=== PATIENT | male | born 1980 | race Caucasian/White ===

== ENCOUNTER 2019-07-19 15:18 | Emergency (ER) | payer SELFPAY ==
[~2019-07-19] VITALS: Ht 162.6 cm; Wt 49.9 kg
--- NOTE | 2019-07-19 15:20 | NUR ---
BIBRA39, FOUND PASSED OUT IN A SIDEWALK. UNRESPONSIVE. NARCAN 2MG GIVEN, TO ER BED 8, HOOKED TO MONITOR, CHANGED TO GOWN, PROVIDE W WARM BLANKET, AWAITING MD ZIEGLER.
--- NOTE | 2019-07-19 15:32 | NUR ---
DR MADDOX AT BEDSIDE
[2019-07-19] MEDS: IV NS 0.9% 1,000 ML BAG IV ONE (16:00)
[2019-07-19 16:02] LABS: BASOPHILS # (AUTO) 0.1 /CMM (0.0-0.2); EOSINOPHILS % (AUTO) 0.3 % (0.0-6.0); HEMATOCRIT 50 % (39-51); LYMPHOCYTES % (AUTO) 20.1 % (20.0-44.0); MEAN CORPUSCULAR HGB CONC 34 g/dl (31.0-36.0); MEAN CORPUSCULAR VOLUME 108 fL (80-96); MONOCYTES # (AUTO) 1.2 /CMM (0.1-1.30); MONOCYTES % (AUTO) 12.2 % (2.0-12.0); NEUTROPHILS # (AUTO) 6.7 /CMM (1.8-8.9); NEUTROPHILS % (AUTO) 66.4 % (43.0-81.0); PLATELET COUNT (AUTO) 225 /CMM (150-450); RED BLOOD CELL COUNT(AUTO) 4.57 MIL/uL (4.5-6.0); WHITE BLOOD COUNT (AUTO) 10.2 K/uL (4.3-11.0)
[2019-07-19 16:04] LABS: APPEARANCE,URINE Clear (CLEAR); BILIRUBIN,URINE Negative (NEGATIVE); BLOOD, URINE Negative Ery/uL (NEGATIVE); COLOR,URINE Yellow (YELLOW); KETONES,URINE Negative (NEGATIVE); LEUKOCYTE ESTERASE ,URINE Negative (NEGATIVE); NITRITE, URINE Negative (NEGATIVE); PH,URINE 5.5 (5.0-8.0); PROTEIN,URINE Negative (NEGATIVE); UGLUCOSE Negative (NEGATIVE); UROBILINOGEN,URINE 0.2 EU/dL (0.2)
[2019-07-19 16:07] LABS: CALCIUM, SERUM 8.8 mg/dL (8.5-10.1); CARBON DIOXIDE 26 mmol/L (21-32); CHLORIDE 104 mmol/L (98-107); CREATININE 0.7 mg/dL (0.6-1.3); GLUCOSE 94 mg/dL (74-106); POTASSIUM 3.1 mmol/L (3.5-5.1); SODIUM SERUM 146 mmol/L (136-145); UREA NITROGEN, BLOOD 4 mg/dL (7-18)
[2019-07-19 16:12] LABS: ALANINE AMINOTRANSFERASE 91 U/L (12-78); ALBUMIN 4.2 g/dL (3.4-5.0); ALCOHOL, BLOOD 498 mg/dL (0-0); ALKALINE PHOSPHATASE 91 U/L (46-116); ASPARTATE AMINOTRANSFERASE 71 U/L (15-37); BILIRUBIN,DIRECT 0.2 mg/dL (0.0-0.2); BILIRUBIN,TOTAL 0.4 mg/dL (0.2-1.0); SALICYLATE 3.5 mg/dL (2.8-20.0); TOTAL PROTEIN, SERUM 7.4 g/dL (6.4-8.2)
[2019-07-19 16:15] LABS: ACETAMINOPHEN < 5 ug/ml (10-30)
--- NOTE | 2019-07-19 19:03 | NUR ---
PT SLEEPING IN RHURON. NO SIGNS OF DISTRESS NOTED. PT VITAL SIGNS STABLE. WILL CONT TO MONITOR PT.
[2019-07-19 19:05] VITALS: BP 152/93
--- NOTE | 2019-07-20 03:15 | NUR ---
PT A/OX3, NO IMMEDIATE SIGNS OF DISTRESS NOTED. PT PROVIDED WITH WATER. PT VITAL SIGNS STABLE. WILL CONT TO MONITOR PT.
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
== END 2019-07-20 03:38 | disposition left against medical advice (07) ==
LOC: EDBD 15:22 → ER 15:22
DX: F10.129 Alcohol abuse with intoxication, unspecified (principal); R41.82 Altered mental status, unspecified; R94.31 Abnormal electrocardiogram [ECG] [EKG]; Y90.8 Blood alcohol level of 240 mg/100 ml or more
CPT/HCPCS: 36415; 80048; 80076; 80305; 80307; 80329; 81001; 85025; 93005; 96360; 99284; G0480; J7030; 81000-TC

== ENCOUNTER 2019-07-20 18:01 | Inpatient (IN) | payer SELFPAY ==
[~2019-07-20] VITALS: Ht 167.6 cm; Wt 50.8 kg
--- NOTE | 2019-07-20 18:45 | NUR ---
PATIENT BIB CAREGIVER TO ER W/ AUDITORY AND VISUAL HALLUCINATIONS. AAOX3. PT CLAIMS THAT HE DOES NOT KNOW HOW HE GOT HERE. PT CLAIMS THAT HE CURRENTLY DOES NOT HAVE AUDITORY OR VISUAL HALLUCINATIONS. DOES NOT ENDORSE SI/ANGELO. NO ACUTE DISTRESS NOTED. VSS. KEPT COMFORTABLE W/ BLANKET IN BED. WILL CONTINUE TO MONITOR FOR PATIENT'S SAFETY.
[2019-07-20] MEDS ORDERED: IBUPROFEN 600 MG TABLET PO ONE ×2 (18:56→19:00)
[2019-07-20] MEDS ORDERED: LORAZEPAM INJ 2 MG/ML VIAL ONE (18:57)
[2019-07-20] MEDS ORDERED: IV NS 0.9% 1,000 ML BAG IV ONE (19:00)
[2019-07-20] MEDS ORDERED: VANCOMYCIN 1 GM in IV D5W 250 ML IV ONE (19:00)
[2019-07-20] MEDS ORDERED: PIPERACILLIN /TAZOBACTAM 3.375 G in IV D5W 50 ML IV ONE (19:00)
[2019-07-20] MEDS ORDERED: LORAZEPAM INJ 2 MG/ML VIAL IV ONE (19:00)
[2019-07-20 19:08] LABS: BASOPHILS % (AUTO) 0.3 % (0.0-2.0); EOSINOPHILS % (AUTO) 0.1 % (0.0-6.0); HEMATOCRIT 44 % (39-51); HEMOGLOBIN 14.9 g/dL (13.5-17.5); LYMPHOCYTES # (AUTO) 1.4 /CMM (0.8-4.8); LYMPHOCYTES % (AUTO) 10.8 % (20.0-44.0); MEAN CORPUSCULAR HGB CONC 34 g/dl (31.0-36.0); MEAN CORPUSCULAR VOLUME 108 fL (80-96); MONOCYTES # (AUTO) 1.5 /CMM (0.1-1.30); MONOCYTES % (AUTO) 11.4 % (2.0-12.0); NEUTROPHILS # (AUTO) 10.2 /CMM (1.8-8.9); NEUTROPHILS % (AUTO) 77.4 % (43.0-81.0); PLATELET COUNT (AUTO) 206 /CMM (150-450); RED BLOOD CELL COUNT(AUTO) 4.03 MIL/uL (4.5-6.0); WHITE BLOOD COUNT (AUTO) 13.2 K/uL (4.3-11.0)
--- NOTE | 2019-07-20 19:12 | NUR ---
CALLED NURSING SUP FOR BED WITH SITTER
[2019-07-20 19:13] LABS: CALCIUM, SERUM 9.1 mg/dL (8.5-10.1); CREATININE 0.6 mg/dL (0.6-1.3); POTASSIUM 4.5 mmol/L (3.5-5.1)
[2019-07-20 19:20] LABS: SERUM AMMONIA 16 umol/L (11-32)
[2019-07-20 19:28] LABS: ALCOHOL, BLOOD < 3 mg/dL (0-0)
[2019-07-20 19:29] LABS: ALBUMIN 4.3 g/dL (3.4-5.0); BILIRUBIN,DIRECT 0.4 mg/dL (0.0-0.2); BILIRUBIN,TOTAL 1.2 mg/dL (0.2-1.0); TOTAL PROTEIN, SERUM 7.3 g/dL (6.4-8.2)
[2019-07-20 19:42] LABS: BAND % (MANUAL) 4 % (0.0-5.0); LYMPHOCYTES % (MANUAL) 18 % (16-48); MONOCYTES % (MANUAL) 11 % (0-11.0); NEUTROPHILS % (MANUAL) 67 (42-76)
--- NOTE | 2019-07-20 19:44 | NUR ---
REPORT GIVEN TO CIRILO PETERS FOR ALESSIO
--- NOTE | 2019-07-20 19:54 | NUR ---
EPIC MILIEU TECHNICIAN PAGED
--- NOTE | 2019-07-20 19:54 | NUR ---
RECIEVED BED 313-2
--- NOTE | 2019-07-20 21:17 | NUR ---
report given to grace beal for brenden; pt will be transported to 3rd floor via [facility]
[2019-07-20 21:30] VITALS: BP 141/83
[2019-07-20] MEDS ORDERED: MAG HYDROX/AL HYDROX/SIMETH 30 ML UDC PO PRN (22:30)
[2019-07-20] MEDS ORDERED: ONDANSETRON HCL/PF 4 MG/2 ML VIAL IVP PRN (22:30)
[2019-07-20] MEDS ORDERED: HYDROCODONE/APAP 10/325MG 1 EA TABLET PO PRN (22:30)
[2019-07-20] MEDS ORDERED: LORAZEPAM INJ 2 MG/ML VIAL IV PRN (22:30)
[2019-07-20] MEDS ORDERED: ACETAMINOPHEN 325 MG TABLET PO PRN (22:30)
[2019-07-20] MEDS ORDERED: MORPHINE SULFATE INJ 2 MG/ML DISP.SYRIN IV PRN (22:30)
[2019-07-20] MEDS ORDERED: MAGNESIUM HYDROXIDE 30 ML UDC PO PRN (22:30)
[2019-07-20] MEDS ORDERED: HYDROCODONE/APAP 5/325MG 1 EACH TABLET PO PRN (22:30)
--- NOTE | 2019-07-20 23:00 | NUR ---
Receive pt via gurgeorgette from E.R services at 2110 pt a/o x 3 pt noted sleepy but easily arousable. admit to medsurg unit. respirations even and unlabored. head to toe assessment is done. denies hallucination and suicidal ideation at this time. pt verbalizes "i just wanna sleep and rest". kept clean and dry and comfortable. safety measures at all times. will cont to mtr
[2019-07-20] MEDS: IV D5/0.45 NACL 1,000 ML IV PRN (23:21)
[2019-07-21] MEDS: FOLIC ACID 1 MG TABLET PO SCH ×2 (01:56→09:32)
[2019-07-21] MEDS: THIAMINE HCL 100 MG TABLET PO SCH ×2 (01:56→09:31)
[2019-07-21] MEDS ORDERED: PIPERACILLIN /TAZOBACTAM 4.5 G in IV D5W 50 ML IV SCH (05:00)
[2019-07-21] MEDS ORDERED: PIPERACILLIN /TAZOBACTAM 2.25 G VIAL IV ONE (05:28)
--- NOTE | 2019-07-21 06:20 | NUR ---
MS RN ASLEEP AND EASILY AWAKEN, DENIES HI/SI AT THIS TIME. PT STATED FEELS BETTER. SLEPT WELL THROUGHOUT THE NIGHT. NO S/S OF DISTRESS, NO C/O OF PAIN AT THIS TIME. NO S/S OF WITHDRAWAL. 1:1 SITTER AT BEDSIDE, NURSING CARE RENDERED, KEPT CLEAN AND DRY AND COMFORTABLE. NEEDS ATTENDED AND ANTICIPATED. SAFETY MEASURES AT ALL TIMES. ENDORSE TO THE NEXT SHIFT.
[2019-07-21 06:50] LABS: BASOPHILS # (AUTO) 0.1 /CMM (0.0-0.2); BASOPHILS % (AUTO) 0.6 % (0.0-2.0); EOSINOPHILS % (AUTO) 1.2 % (0.0-6.0); HEMATOCRIT 41 % (39-51); HEMOGLOBIN 14.1 g/dL (13.5-17.5); LYMPHOCYTES # (AUTO) 1.3 /CMM (0.8-4.8); LYMPHOCYTES % (AUTO) 15.4 % (20.0-44.0); MEAN CORPUSCULAR HGB CONC 34 g/dl (31.0-36.0); MEAN CORPUSCULAR VOLUME 108 fL (80-96); MONOCYTES # (AUTO) 1.2 /CMM (0.1-1.30); MONOCYTES % (AUTO) 13.4 % (2.0-12.0); NEUTROPHILS # (AUTO) 6.1 /CMM (1.8-8.9); NEUTROPHILS % (AUTO) 69.4 % (43.0-81.0); PLATELET COUNT (AUTO) 171 /CMM (150-450); RED BLOOD CELL COUNT(AUTO) 3.83 MIL/uL (4.5-6.0); WHITE BLOOD COUNT (AUTO) 8.7 K/uL (4.3-11.0)
[2019-07-21 07:09] LABS: CALCIUM, SERUM 8.1 mg/dL (8.5-10.1); CREATININE 0.6 mg/dL (0.6-1.3); MAGNESIUM 1.8 mg/dL (1.8-2.4); PHOSPHORUS 2.8 mg/dL (2.5-4.9); POTASSIUM 3.7 mmol/L (3.5-5.1)
[2019-07-21 07:18] LABS: THYROID STIMULATING HORMONE 1.327 uIU/mL (0.358-3.74)
--- NOTE | 2019-07-21 08:00 | NUR ---
MS RN NOTES PATIENT IN BED RESTING NO SOB OR ACUTE DISTRESS NOTED. PATIENT ALERT, ORIENTED X4. PERIPHERAL IV INTACT PATENT. BED IN LOW LOCKED POSITION. CALL LIGHT WITHIN REACH. WILL CONTINUE TO MONITOR.
[2019-07-21 08:52] LABS: LYMPHOCYTES % (MANUAL) 16 % (16-48); MONOCYTES % (MANUAL) 11 % (0-11.0); NEUTROPHILS % (MANUAL) 73 (42-76)
[2019-07-21] MEDS ORDERED: VANCOMYCIN 1 GM in IV D5W 250 ML IV SCH (09:00)
[2019-07-21] MEDS: IV D5/0.45 NACL 1,000 ML IV PRN ×2 (10:11→21:38)
[2019-07-21] MEDS ORDERED: PIPERACILLIN /TAZOBACTAM 3.375 G in IV D5W 50 ML IV SCH (12:00)
[2019-07-21] MEDS ORDERED: PIPERACILLIN /TAZOBACTAM 3.375 G in IV NS 0.9% 50 ML IV SCH (12:00)
[2019-07-21] MEDS ORDERED: CEFTRIAXONE 1 G in IV D5W 50 ML IV SCH (13:00)
--- NOTE | 2019-07-21 13:37 | NUR ---
Social service consult requested by Dr. Aguilar for alcohol abuse. Pt. is a 39 year old male who was admitted to [facility] for cellulitis. Pt. was brougt to [facility] via ambulance the day before when he was found down on the street in front of a pet store. The pt. was reportedly unresponsive to Narcan en route but with positive gag reflex. He had reportedly been laying down in front of the pet store since 11am. Pt. eloped from the facility yesterday. Pt. came back to the hospital due to confusion and hearing voices. He stated he sustained scratches from a cat yesterday morning on his right wrist and forearm. He developed pain and swelling. SW met with pt. bedside. Pt. is alert and oriented x4. Pt. was sitting upright on his bed. Pt. is cooperative and pleasant with SW. 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 Pt. denies any drug use but does drink alcohol frequently. Pt. seems to minimize his alcohol consumption stating he drinks a few beers per day. Pt. states, he only drinks hard liquor on special occasions. Pt. uses marijuana daily. 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 Pt. is a cigarette smoker and smokes approximately 1/2 -1 pack per day. Pt. denies any psychiatric diagnosis or hospitalizations. Pt. denies suicidal/homicidal ideations and visual/auditory hallucinations at this time. Pt. discharge plan is to go back home which is located at [address] [place] [address]. [facility]. No other social service needs are requested at this time. SW is available, if needed.
[2019-07-21] MEDS ORDERED: AZITHROMYCIN 250 MG TABLET PO SCH (14:00)
--- NOTE | 2019-07-21 18:02 | NUR ---
MS RN NOTES PATIENT IN BED RESTING NO SOB OR ACUTE DISTRESS NOTED. PATIENT ALERT, ORIENTED X4. DENIES ANY PAIN. NO ACUTE CHANGES NOTED DURING SHIFT. PERIPHERAL IV INTACT PATENT. ALL DUE MEDICATIONS ADMINISTERED. ALL NEEDS MET. WILL ENDORSE CARE TO PM SHIFT.
--- NOTE | 2019-07-21 19:34 | NUR ---
MS RN RECEIVE PT IN BED A/O X 3 STABLE, RESPIRATION EVEN AND UNLABORED, NO S/S OF DISTRESS. SAFETY MEASURES IN PLACE. WILL CONT TO MTR.
[2019-07-21 20:00] VITALS: BP 122/75
[2019-07-22] MEDS: IV D5/0.45 NACL 1,000 ML IV PRN (06:18)
--- NOTE | 2019-07-22 06:38 | NUR ---
MS RN NO SIGNIFICANT CHANGES. SLEPT WELL THROUGHOUT THE NIGHT. STABLE AND CALM, AM CARE RENDERED, KEPT CLEAN AND DRY AND COMFORTABLE. NEEDS ATTENDED AND ANTICIPATED. NO C/O OF PAIN. SAFETY MEASURES AT ALL TIMES. ENDORSE TO THE NEXT SHIFT.
--- NOTE | 2019-07-22 07:30 | NUR ---
MS RN OPENING NOTES RECEIVED PT LAYING IN BED, A/O X3. RESPIRATIONS ARE EVEN AND UNLABORED, NOT IN ANY ACUTE DISTRESS NOTED. PT DENIES ANY PAIN AT THIS TIME, NO C/O SOB, N/V. IV SITE TO RAC INTACT, NO INFILTRATION NOTED. DRESSING KEPT CLEAN AND DRY. IV FLUIDS RUNNING AT 125ML/HR, TOLERATING WELL. SAFETY MEASURES ARE IN PLACE. INSTRUCTED PT TO USE CALL LIGHT WHEN ASSISTANCE IS NEEDED, CALL LIGHT IS LEFT WITHIN REACH. WILL MONITOR THROUGHOUT SHIFT FOR CONTINUITY OF CARE.
[2019-07-22 08:00] VITALS: BP 117/76
[2019-07-22] MEDS: THIAMINE HCL 100 MG TABLET PO SCH (08:11)
[2019-07-22] MEDS: FOLIC ACID 1 MG TABLET PO SCH (08:11)
[2019-07-22] MEDS ORDERED: AZITHROMYCIN 250 MG TABLET PO SCH (09:00)
--- NOTE | 2019-07-22 13:00 | NUR ---
MS HOUSEKEEPER HOME NOTE PT DISCHARGED TO HOME W/ FRIEND VIA PERSONAL VEHICLE. PT IS A/O X4, AFEBRILE. RESPIRATIONS ARE EVEN AND UNLABORED, NOT IN ANY ACUTE DISTRESS NOTED. PUPILS ARE REACTIVE TO LIGHT, BILATERAL HAND DIRECTOR OF LABOR RELATIONS ARE STRONG AND EQUAL. ABDOMEN IS SOFT AND NONDISTENDED, BOWEL SOUNDS ARE PRESENT IN ALL 4 QUADRANTS UPON AUSCULTATION. DENIES ANY BLADDER DISCOMFORT. IV ACCESS REMOVED. ID BANDS REMOVED. EXPLAINED DISCHARGE PAPERWORK TO PT AND FRIEND WITH VERBAL AND WRITTEN UNDERSTANDING. PROVIDED PT WITH OUTPATIENT SUBSTANCE ABUSE RESOURCES. PT LEFT WITH ALL BELONGINGS. ACCOMPANIED PT AND FRIEND TO VEHICLE. PT LEFT IN STABLE CONDITION.
== END 2019-07-22 12:35 | disposition home or self-care (01) | DRG 603 ==
LOC: ER 18:03 → TELE 19:57 → MED 07-21 01:51
PROVIDERS: ATTEND Nurse Practitioner Acute Care
DX: L03.113 Cellulitis of right upper limb (principal); F10.239 Alcohol dependence with withdrawal, unspecified; Y90.0 Blood alcohol level of less than 20 mg/100 ml; W55.03XA Scratched by cat, initial encounter; Z72.0 Tobacco use; Y92.9 Unspecified place or not applicable; F12.929 Cannabis use, unspecified with intoxication, unspecified
CPT/HCPCS: 36415; 70450-TC; 71045-TC; 73100-TC; 80048-TC; 80061-TC; 80076-TC; 80305; 82140-TC; 83690-TC; 83735-TC; 84100-TC; 84443-TC; 85025-TC; 85730-TC; 87040-TC; 87081-TC; A4216; G0378; G0480; J0696; J2060; J2543; J3370; J3490; J7030; J7060

== ENCOUNTER 2019-10-30 18:55 | Emergency (ER) | payer MEDICAID, OTHER ==
[~2019-10-30] VITALS: Ht 167.6 cm; Wt 57.6 kg
--- NOTE | 2019-10-30 19:21 | NUR ---
PT CHANTEL C/O R SHOULDER PAIN FOLLOWING FALL ON WEDNESDAY. PER PT HE "HAD A POSSIBLE DISLOCATED SHOULDER WHICH HE FIXED IT BY HIMSELF". PT ABLE TO PERFORM FULL ROM.
--- NOTE | 2019-10-30 20:45 | NUR ---
PT WAS PROVIDED W/ R SHOULDER SLING. Patient discharged to home in stable condition. Written and verbal after care instructions given. Patient verbalizes understanding of instruction.
[2019-10-30 21:21] VITALS: BP 143/87
== END 2019-10-30 20:45 | disposition home or self-care (01) ==
LOC: ER 19:02
DX: M25.511 Pain in right shoulder (principal); F10.10 Alcohol abuse, uncomplicated; F17.200 Nicotine dependence, unspecified, uncomplicated; Y90.9 Presence of alcohol in blood, level not specified
CPT/HCPCS: 73030-TC

== ENCOUNTER 2020-10-05 21:25 | Emergency (ER) | payer MEDICAID, OTHER ==
[~2020-10-05] VITALS: Ht 167.6 cm; Wt 56.7 kg
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
[2020-10-05] MEDS ORDERED: TDAP [DIPH/PERTUSSIS/TET] 0.5 ML VIAL IM ONE ×2 (22:00→22:33)
--- NOTE | 2020-10-05 22:10 | NUR ---
PT AMBULATION TESTED. ON STEADY GAIT.
--- NOTE | 2020-10-05 22:15 | NUR ---
CALLED CHARLETTE DELGADILLO, PT'S FAMILY THAT PT IS CLEARED FOR DISCHARGE AND NEEDS TO BE PICKED UP. UNABLE TO TECHNICAL SUPPORT ASSISTANT SO SHE WILL BE SENDING AN UBER OR CAB TO TECHNICAL SUPPORT ASSISTANT PT. PROVIDER IS AWARE AND OK TOO DISCHARGE IN THAT MANNER
--- NOTE | 2020-10-05 22:47 | NUR ---
Patient discharged to home in stable condition. Written and verbal after care instructions given. Patient verbalizes understanding of instruction. Pt ambulatory with a steady gait. Pt left on taxi cab sent by [facility].
[2020-10-05 23:15] VITALS: BP 134/83
== END 2020-10-05 23:00 | disposition home or self-care (01) ==
LOC: ER 21:29
DX: S00.83XA Contusion of other part of head, initial encounter (principal); S00.03XA Contusion of scalp, initial encounter; S20.412A Abrasion of left back wall of thorax, initial encounter; S20.411A Abrasion of right back wall of thorax, initial encounter; S80.812A Abrasion, left lower leg, initial encounter; S80.811A Abrasion, right lower leg, initial encounter; F10.129 Alcohol abuse with intoxication, unspecified; R51.9 Headache, unspecified; Y90.9 Presence of alcohol in blood, level not specified; Y08.02XA Assault by strike by baseball bat, initial encounter; Y93.89 Activity, other specified; Y92.89 Other specified places as the place of occurrence of the external cause; Y99.8 Other external cause status
CPT/HCPCS: 70450-TC; 90715

== ENCOUNTER 2021-05-16 13:20 | Inpatient (IN) | payer OTHER ==
[~2021-05-16] VITALS: Ht 167.6 cm; Wt 53.1 kg
[2021-05-16] MEDS ORDERED: IV NS 0.9% 1,000 ML BAG IV ONE (13:30)
--- NOTE | 2021-05-16 13:43 | NUR ---
[facility] FROM [facility]. TO ER BED 4. EYES CLOSE BUT EASILY AROUSABLE. NOT IN RESP DISTRESS. BROUGHT IN FOR WITNESSED SEIZURE. NO NOTED INJURY. PT STILL DISORIENTED. UNKNOWN HX OF SEIZURE. PT ON MONITOR. SEIZURE PRECAUTION IMPLEMENTED. MD WAS AT THE BEDSIDE. IV LINE AND BLOODR DROWN ON R AC 18G.
[2021-05-16 13:48] LABS: BASOPHILS # (AUTO) 0.1 K/uL (0.0-0.2); BASOPHILS % (AUTO) 1.1 % (0.0-2.0); EOSINOPHILS % (AUTO) 0.7 % (0.0-6.0); HEMATOCRIT 44 % (39-51); LYMPHOCYTES % (AUTO) 23.7 % (20.0-44.0); MEAN CORPUSCULAR HGB CONC 34 g/dl (31.0-36.0); MEAN CORPUSCULAR VOLUME 102 fL (80-96); MONOCYTES # (AUTO) 0.8 K/uL (0.1-1.30); MONOCYTES % (AUTO) 9.1 % (2.0-12.0); NEUTROPHILS # (AUTO) 5.5 K/uL (1.8-8.9); NEUTROPHILS % (AUTO) 65.4 % (43.0-81.0); PLATELET COUNT (AUTO) 184 K/uL (150-450); RED BLOOD CELL COUNT(AUTO) 4.34 MIL/uL (4.5-6.0); WHITE BLOOD COUNT (AUTO) 8.4 K/uL (4.3-11.0)
[2021-05-16] MEDS ORDERED: LORAZEPAM INJ 2 MG/ML VIAL ONE (13:50)
--- NOTE | 2021-05-16 13:50 | NUR ---
WALKED IN PT IS HAVING TONIC CLONIC SEIZURE LASTED 15SEC. ORAL TRAUMA NOTED. ATIVAN 2 MG IVP X 1 PER MD ORDERED.
[2021-05-16 14:00] LABS: CALCIUM, SERUM 9.4 mg/dL (8.5-10.1); CARBON DIOXIDE 26 mmol/L (21-32); CHLORIDE 102 mmol/L (98-107); GLUCOSE 73 mg/dL (74-106); POTASSIUM 4.4 mmol/L (3.5-5.1); SODIUM SERUM 141 mmol/L (136-145); UREA NITROGEN, BLOOD 11 mg/dL (7-18)
[2021-05-16] MEDS ORDERED: LEVETIRACETAM (500MG) 1,000 MG in IV NS 0.9% 100 ML IV SCH (14:00)
[2021-05-16] MEDS ORDERED: LORAZEPAM INJ 2 MG/ML VIAL IV ONE (14:00)
[2021-05-16 14:06] LABS: ALANINE AMINOTRANSFERASE 29 U/L (12-78); ALBUMIN 4.1 g/dL (3.4-5.0); ALCOHOL, BLOOD < 3 mg/dL (0-0); ALKALINE PHOSPHATASE 104 U/L (46-116); ASPARTATE AMINOTRANSFERASE 25 U/L (15-37); BILIRUBIN,DIRECT 0.1 mg/dL (0.0-0.2); BILIRUBIN,TOTAL 0.4 mg/dL (0.2-1.0); TOTAL PROTEIN, SERUM 7.6 g/dL (6.4-8.2)
--- NOTE | 2021-05-16 15:00 | NUR ---
CALLED NURSING SUP FOR TELE BED.
--- NOTE | 2021-05-16 16:27 | NUR ---
PAGED DR. WOLFE.
--- NOTE | 2021-05-16 18:11 | NUR ---
NURSING SUP GAVE [phone].
--- NOTE | 2021-05-16 18:18 | NUR ---
REPORT GIVEN TO NURSE MORGAN FOR ALESSIO
[2021-05-16] MEDS ORDERED: LORAZEPAM INJ 2 MG/ML VIAL IV PRN (18:30)
[2021-05-16] MEDS ORDERED: ACETAMINOPHEN 325 MG TABLET PO PRN (18:30)
[2021-05-16] MEDS ORDERED: MAGNESIUM HYDROXIDE 30 ML UDC PO PRN (18:30)
[2021-05-16] MEDS ORDERED: Z GUARD REMEDY 2 OZ OINT TP PRN (18:30)
[2021-05-16] MEDS ORDERED: MAG HYDROX/AL HYDROX/SIMETH 30 ML UDC PO PRN (18:30)
[2021-05-16] MEDS ORDERED: ONDANSETRON HCL/PF 4 MG/2 ML VIAL IVP PRN (18:30)
[2021-05-16] MEDS ORDERED: ZOLPIDEM TARTRATE 5 MG TABLET PO PRN (18:30)
[2021-05-16 18:35] VITALS: BP 118/82
--- NOTE | 2021-05-16 18:36 | NUR ---
PT TRANSPORTED TO UNIT IN [facility] WITH EMT ADN RN AR BEDSIDE W/ ACLS PROTOCOL. NAD NOTED DURING TRANSPORT.
[2021-05-16 20:00] VITALS: BP 118/80
[2021-05-16] MEDS ORDERED: LEVETIRACETAM (500MG) 500 MG in IV NS 0.9% 100 ML IV SCH (20:00)
--- NOTE | 2021-05-16 20:00 | NUR ---
SUPERVISOR PUBLICATIONS PRODUCTIONSTEAM FITTER SUPERVISOR NOTE PATIENT ALERT/ORIENTED X 3, PT ABLE TO MAKE NEEDS KNOWN. PATIENT STABLE ON OXYGEN VIA NASAL CANNULA. RIGHT AC #18G INTACT AND FLUSHING WELL. PATIENT BELONGINGS CHARTED AND ACCOUNTED FOR. ORIENTED PATIENT TO ROOM AND HOW TO USE CALL LIGHT. SAFETY AND SEIZURE PRECAUTIONS IN PLACE, BED LOCKED IN LOWEST POSITION, BED ALARM ON, CALL LIGHT WITHIN REACH, WILL CONTINUE TO MONITOR
[2021-05-16] MEDS: IV D5/0.45 NACL 1,000 ML IV PRN (20:09)
[2021-05-17] VITALS: BP 119/81
[2021-05-17] MEDS ORDERED: LEVETIRACETAM (500MG) 500 MG in IV NS 0.9% 100 ML IV SCH (02:00)
[2021-05-17 04:00] VITALS: BP 109/73
[2021-05-17 06:17] LABS: BASOPHILS # (AUTO) 0.1 K/uL (0.0-0.2); BASOPHILS % (AUTO) 0.6 % (0.0-2.0); EOSINOPHILS % (AUTO) 1.7 % (0.0-6.0); HEMATOCRIT 42 % (39-51); HEMOGLOBIN 14.3 g/dL (13.5-17.5); LYMPHOCYTES # (AUTO) 1.8 K/uL (0.8-4.8); LYMPHOCYTES % (AUTO) 20.1 % (20.0-44.0); MEAN CORPUSCULAR HGB CONC 34 g/dl (31.0-36.0); MEAN CORPUSCULAR VOLUME 102 fL (80-96); MONOCYTES # (AUTO) 0.8 K/uL (0.1-1.30); MONOCYTES % (AUTO) 9.1 % (2.0-12.0); NEUTROPHILS # (AUTO) 6.3 K/uL (1.8-8.9); NEUTROPHILS % (AUTO) 68.5 % (43.0-81.0); PLATELET COUNT (AUTO) 156 K/uL (150-450); RED BLOOD CELL COUNT(AUTO) 4.13 MIL/uL (4.5-6.0); WHITE BLOOD COUNT (AUTO) 9.1 K/uL (4.3-11.0)
[2021-05-17 06:40] LABS: CALCIUM, SERUM 8.2 mg/dL (8.5-10.1); CREATININE 0.8 mg/dL (0.6-1.3); MAGNESIUM 2.1 mg/dL (1.8-2.4); PHOSPHORUS 3.2 mg/dL (2.5-4.9); POTASSIUM 3.6 mmol/L (3.5-5.1)
[2021-05-17 06:51] LABS: THYROID STIMULATING HORMONE 2.001 uIU/mL (0.358-3.74)
--- NOTE | 2021-05-17 07:15 | NUR ---
ANESTHESIOLOGISTSWAHILI TEACHER NOTE PATIENT SLEEPING, BREATHING EVEN AND UNLABORED, NO DISTRESS OR SOB NOTED. RIGHT AC #18G INTACT AND RUNNING D5 1/2 NS @ 125 ML/HR . MEDICATIONS GIVEN ORDERED, PT NEEDS MET THROUGHOUT SHIFT. NO SEIZURES DURING SHIFT. PT ON TELE SINUS CHUYITA, HR 55. SAFETY AND SEIZURE PRECAUTIONS IN PLACE, BED LOCKED IN LOWEST POSITION, BED ALARM ON, CALL LIGHT WITHIN REACH, WILL ENDORSE TO DAY SHIFT NURSE FOR CONTINUITY OF CARE Addendum: 05/17/21 at 0748 by ATILIO ESPINO RN ANESTHESIOLOGIST CLOSING NOTE
--- NOTE | 2021-05-17 07:30 | NUR ---
VISE HAND NOTES PT IN BED, ASLEEP, EASY TO AROUSE, NO SIGN OF PAIN OR ANY DISCOMFORT, CALL LIGHT WITHIN REACH, IV FLUIDS INFUSING WELL, SEIZURE PRECAUTIONS OBSERVED, KEPT WARM AND COMFORTABLE IN BED.
[2021-05-17] MEDS ORDERED: PANTOPRAZOLE 40 MG VIAL IV SCH (09:00)
[2021-05-17] MEDS: IV D5/0.45 NACL 1,000 ML IV PRN (09:28)
[2021-05-17] MEDS ORDERED: LEVE500T20 PO (13:38)
--- NOTE | 2021-05-17 14:30 | NUR ---
OYSTER HARVESTER NOTES PT IN BED, AWAKE, ALERT AND ORIENTED, DENIES PAIN, NOT IN DISTRESS, ON ROOM AIR, AMBULATES IN HIS ROOM WITH STEDY GAIT, SEEN BY DR. HUIZAR, CLEARED PT FOR DISCHARGE, ALSO SEEN BY DR. FAULKNER, DISCHARGE ORDER GIVEN, DISCHARGE AND MEDICATION INSTRUCTIONS PROVIDED TO PT, VERBALIZED UNDERSTANDING, PT'S NEW PRESCRIPTION SENT ELECTRONICALLY BY MD TO PT'S PREFERRED PHARMACY, BELONGINGS ACCOUNTED FOR, ASSISTED PT TO HOSPITAL LOBBY, TAP CARD GIVEN, LEFT IN STABLE CONDITION.
== END 2021-05-17 14:30 | disposition home or self-care (01) | DRG 53 ==
LOC: ER 13:26 → TELE 18:24
PROVIDERS: ADMIT Student in an Organized Health Care Education/Training Program; ATTEND Internal Medicine
DX: R56.9 Unspecified convulsions (principal); E16.2 Hypoglycemia, unspecified
CPT/HCPCS: 36415; 70450-TC; 71045-TC; 80048-TC; 80061-TC; 80076-TC; 82140-TC; 83735-TC; 84100-TC; 84443-TC; 85025-TC; 85730-TC; 87081-TC; 97116-TC; 97530-TC; C9113; C9803; G0378; G0480; J1953; J2060; J3490; J7030

== ENCOUNTER 2021-05-23 02:22 | Emergency (ER) | payer OTHER ==
[~2021-05-23] VITALS: Ht 167.6 cm; Wt 56.7 kg
[~2021-05-23 02:22] MED LIST: LEVE500T20 PO
--- NOTE | 2021-05-23 02:32 | NUR ---
Pt bibra and [employer] c/o hearing voices calling his name and chasing him. Pt aaox4 breathing evenly and unlabored. Pt denies SI/HI. Pt attached to monitor and pox. SKin warm and dry. MD at bedside. Pt given blanket and call light within reach
--- NOTE | 2021-05-23 02:55 | NUR ---
covid swab sent to lab
[2021-05-23 02:59] LABS: BASOPHILS # (AUTO) 0.1 K/uL (0.0-0.2); EOSINOPHILS % (AUTO) 0.5 % (0.0-6.0); HEMATOCRIT 41 % (39-51); HEMOGLOBIN 13.9 g/dL (13.5-17.5); LYMPHOCYTES # (AUTO) 1.8 K/uL (0.8-4.8); LYMPHOCYTES % (AUTO) 14.3 % (20.0-44.0); MEAN CORPUSCULAR HGB CONC 34 g/dl (31.0-36.0); MEAN CORPUSCULAR VOLUME 101 fL (80-96); MONOCYTES # (AUTO) 1.5 K/uL (0.1-1.30); MONOCYTES % (AUTO) 12.2 % (2.0-12.0); NEUTROPHILS # (AUTO) 8.9 K/uL (1.8-8.9); PLATELET COUNT (AUTO) 209 K/uL (150-450); WHITE BLOOD COUNT (AUTO) 12.3 K/uL (4.3-11.0)
[2021-05-23] MEDS ORDERED: OLANZAPINE 10 MG VIAL IM ONE ×2 (03:00→03:01)
[2021-05-23 03:08] LABS: CALCIUM, SERUM 8.9 mg/dL (8.5-10.1); CARBON DIOXIDE 24 mmol/L (21-32); CHLORIDE 101 mmol/L (98-107); GLUCOSE 120 mg/dL (74-106); POTASSIUM 2.9 mmol/L (3.5-5.1); SODIUM SERUM 138 mmol/L (136-145); UREA NITROGEN, BLOOD 17 mg/dL (7-18)
[2021-05-23 03:22] LABS: ALANINE AMINOTRANSFERASE 45 U/L (12-78); ALBUMIN 4.2 g/dL (3.4-5.0); ALCOHOL, BLOOD < 3 mg/dL (0-0); ALKALINE PHOSPHATASE 85 U/L (46-116); ASPARTATE AMINOTRANSFERASE 73 U/L (15-37); BILIRUBIN,DIRECT 0.3 mg/dL (0.0-0.2); BILIRUBIN,TOTAL 1.1 mg/dL (0.2-1.0); TOTAL PROTEIN, SERUM 7.3 g/dL (6.4-8.2)
[2021-05-23 03:23] LABS: ACETAMINOPHEN < 2 ug/ml (10-30)
[2021-05-23] MEDS ORDERED: POTASSIUM CHLORIDE 20 MEQ TAB.PRT.SR PO ONE ×3 (04:00→08:57)
[2021-05-23 04:01] LABS: BILIRUBIN,URINE MODERATE (NEGATIVE); COLOR,URINE YELLOW (YELLOW); LEUKOCYTE ESTERASE ,URINE Negative (NEGATIVE); NITRITE, URINE Negative (NEGATIVE); PROTEIN,URINE 30 mg/dl (NEGATIVE); UGLUCOSE Negative (NEGATIVE); UROBILINOGEN,URINE 0.2 EU/dL (0.2)
[2021-05-23 04:13] LABS: BACTERIA,URINE None seen /HPF (None Seen); RBC,URINE 0-2 /HPF (0-2); SQUAMOUS EPITHELIAL CELL,UR Few /HPF (None Seen); URINE AMORPHOUS PHOSPHATES Rare /HPF (None Seen); WBC,URINE 0-2 /HPF (0-3)
--- NOTE | 2021-05-23 09:10 | NUR ---
PATIENT A/OX4, BREATHING EVEN AND UNLABORED, NO SOB NOTED, CALM AND COOPERATIVE. PROVIDED WITH FOOD AND MEDICATIONS. PATIENT IN STABLE CONDITION.
--- NOTE | 2021-05-23 09:11 | NUR ---
NET SOFTWARE ARCHITECT PAGED.
--- NOTE | 2021-05-23 10:29 | NUR ---
KARINA ENGINEER CONDUCTOR AT BEDSIDE FOR CONSULT
--- NOTE | 2021-05-23 10:35 | NUR ---
Forging Die Finisher consult: senior administrative services officer consult requested homelessness and substance use. Per chart, patient was brought in by ambulance and [employer] on 05/23/21 with complaints of auditory hallucinations. Patient is a 40-year-old, male. SW met with patient at his bedside in the emergency department. Patient was alert and oriented x4. Patient presented calm and appeared appropriately dressed. Patient stated that he has been homeless for the last two days and was previously living with a roommate. Patient reported, "I was in retirement the day before yesterday." Patient stated that he plans to gather his belongings from his prior living arrangement at the time of discharge. SW asked patient if he has access social support. Patient stated that his family lives out of state and currently has no access to social support. Patient reported no current source of income. SW asked patient about his history of substance use. Patient reported weekly alcohol and cannabis use but stated that he has been "trying to detox." Patient stated that his cannabis use is "controlled" and reported that he consumes alcohol "way too much." Patient reported that he has been attempting to reduce his alcohol intake. SW assessed patient's history of mental illness and patient denied history. Patient presented paranoid and stated, "a group of people were follow me and trying to kill me before." Patient denied current suicidal or homicidal ideation. SW offered the patient homeless, substance use, and outpatient mental health resources. Patient accepted the resources and thanked SW. Patient signed the homeless waiver and SW filed waiver in the patient's chart. SW discussed discharge plans with the patient. Patient stated that he will discharge to the street and is able to utilize public transportation. PLAN: Patient will discharge to the street at the time of discharge. No further SS intervention, however, SW will remain available as needed. RESOURCES: Year-round shelters: [facility] [address] [place] [address] ; [facility] [address] [place] [address]; [facility] M[facility]. [facility] [address] S[place] 4 | [facility] [place] Provider: First to Serve Address: [address] [place] [address], [facility] # of Beds: 48 Population Served: [facility] Provider: First to Serve Address: [address] [facility], [address] # of Beds: 73 Population Served: [facility] 6 | [facility] Provider: [facility] Last Address: [address] [facility], [address] # of Beds: 63 Population Served: Tashiad [facility] 3 | [facility] Provider: [facility] [place] Address: [address] [facility], [address] # of Beds: 75 Population Served: [facility] 8 | [facility] Provider: [facility] [place] Address: [address] [facility], [address] # of Beds: 80 Population Served: Tashiad [facility] 1 | [facility] Provider: [facility] [place] Address: [address] [place] [address], [address] # of Beds: 85 Population Served: [facility] 2 | [facility] Provider: [place] [facility] Address: Confidential (please call for location) # of Beds: 52 Population Served: [facility] 4 | [facility] Provider: [facility] Address: [address] [facility], [address] # of Beds: 49 Population Served: [facility] Provider: First To Serve Address: [address] [facility], [address] # of Beds: 27 Population Served: Tashia Hygiene: [facility]: [address] [place] ; [facility] [address] [facility] ; [facility] [address] . Food Resources: [place] [facility] at [facility]- [address] [place]; Meet Each Need with [facility] ([facility]) [address] [place]; [facility] [address] [facility] [[email or web address]]; [facility] [address] [facility]. Mental Health resources provided: [facility] [address] [place] [address] ; [facility] [place] [address] [facility] [address], [place], [place] [id number] ; [facility] [address] [facility] [place], [place] [phone] ; [facility] [place], [place] [phone] Healthcare Clinics: [facility] [address] [facility], [address] [place]. [place] ; [facility] [address] [place] [address]; [facility] [address] [facility] [place] [address] [phone] Counseling--Outpatient [facility] [address], [place] [address] (Specializes in in-depth psychotherapy for emotional distress: anxiety, depression, interpersonal conflicts, life transitions, childhood abuse) PSYCHIATRIC OUTPATIENT SERVICES [facility] Partial Hospitalization and Intensive Outpatient Program (Managed Care and [place] Only) [address] [facility] [address] [facility] Partial Hospitalization and Outpatient Program [address] [facility]. [address] [place], [place] [id number] [facility] Partial Hospitalization and Outpatient Program [address] [place], [place] [phone] Critical access hospital [facility] [address] [facility]. [address] [place], [place] [id number] [facility] Partial Hospitalization and Outpatient Program [address] [address], [place] [phone] Substance use resources provided included: [facility] Substance Abuse Self-Helpline (SAS) ; [facility] [address] [facility]. [place] [address] ; [facility] [address] [facility] [address] ; [facility] [place] [address] [phone] ; [facility] [address] [facility] [address] ; [facility] [address] [facility] [phone] ; [facility]; [facility] [place]; [facility] [place]; Alcoholics Anonymous -SFV
--- NOTE | 2021-05-23 10:52 | NUR ---
Patient a/ox4, breathing even and unlabored, calm and cooperative, denies hallucination. No distress noted. Ambulatory with steady gait. Patient discharged to home in stable condition. Written and verbal after care instructions given. Patient verbalizes understanding of instruction.
[2021-05-23 10:54] VITALS: BP 137/72
--- NOTE | 2021-05-23 10:54 | NUR ---
Patient given written and verbal discharge instructions. Patient verbalizes understanding of instructions. Patient is ambulatory with steady gait. Refuses offer of [facility] placement. Patient given list of available shelters in surrounding area.
== END 2021-05-23 10:55 | disposition home or self-care (01) ==
LOC: ER 02:25
DX: F22 Delusional disorders (principal); F12.10 Cannabis abuse, uncomplicated; Z59.0 Homelessness; Z20.822 Contact with and (suspected) exposure to COVID-19; E87.6 Hypokalemia
CPT/HCPCS: 36415; 80048; 80076; 80143; 80307; 80320; 81001; 85025; 87426; 96372; 99285; C9803; J3490; G0480

== ENCOUNTER 2021-07-14 16:56 | Inpatient (IN) | payer OTHER ==
[~2021-07-14] VITALS: Ht 167.6 cm; Wt 57.6 kg
--- NOTE | 2021-07-14 16:56 | NUR ---
PT BIBRA FROM THE STREET C/O SEIZURE EPISODE WITNESSED. PT IS AAOX1, NOT IN RESPIRATORY DISTRESS, HOOKED TO LICENSED CLUB MANAGER, KEPT RESTED AND COMFORTABLE. WILL CONTINUE TO MONITOR.
--- NOTE | 2021-07-14 17:10 | NUR ---
SEEN AND EXAMINED BY .
--- NOTE | 2021-07-14 17:20 | NUR ---
IV LINE ESTABLSISHED BLOOD DRAWN AND SENT TO LAB.
[2021-07-14 17:25] LABS: BASOPHILS # (AUTO) 0.1 K/uL (0.0-0.2); BASOPHILS % (AUTO) 0.4 % (0.0-2.0); HEMATOCRIT 44 % (39-51); HEMOGLOBIN 14.7 g/dL (13.5-17.5); LYMPHOCYTES # (AUTO) 0.5 K/uL (0.8-4.8); LYMPHOCYTES % (AUTO) 2.5 % (20.0-44.0); MEAN CORPUSCULAR HGB CONC 34 g/dl (31.0-36.0); MEAN CORPUSCULAR VOLUME 101 fL (80-96); MONOCYTES % (AUTO) 4.6 % (2.0-12.0); NEUTROPHILS # (AUTO) 20.3 K/uL (1.8-8.9); NEUTROPHILS % (AUTO) 92.5 % (43.0-81.0); PLATELET COUNT (AUTO) 205 K/uL (150-450); RED BLOOD CELL COUNT(AUTO) 4.31 MIL/uL (4.5-6.0); WHITE BLOOD COUNT (AUTO) 21.9 K/uL (4.3-11.0)
[2021-07-14] MEDS ORDERED: IV NS 0.9% 1,000 ML IV ONE (17:30)
[2021-07-14] MEDS: LEVETIRACETAM (500MG) 500 MG in IV NS 0.9% 100 ML IV SCH ×2 (17:30→22:15)
[2021-07-14] MEDS ORDERED: LEVETIRACETAM (500MG) 500 MG in IV NS 0.9% 100 ML IV SCH (17:30)
[2021-07-14] MEDS ORDERED: LORAZEPAM INJ 2 MG/ML VIAL IV ONE (17:30)
[2021-07-14] MEDS ORDERED: LORAZEPAM INJ 2 MG/ML VIAL ONE (17:31)
[2021-07-14 17:32] LABS: CALCIUM, SERUM 8.6 mg/dL (8.5-10.1); CARBON DIOXIDE 21 mmol/L (21-32); CHLORIDE 107 mmol/L (98-107); CREATININE 0.9 mg/dL (0.6-1.3); GLUCOSE 111 mg/dL (74-106); POTASSIUM 3.8 mmol/L (3.5-5.1); SODIUM SERUM 142 mmol/L (136-145); UREA NITROGEN, BLOOD 15 mg/dL (7-18)
--- NOTE | 2021-07-14 17:32 | NUR ---
PT HAD AN ACTIVE SEIZURE EPISODE. AWARE. ATIVAN 2 MG IVP GIVEN PER ORDER.
[2021-07-14] MEDS ORDERED: LEVE500T9 PO (17:34)
[2021-07-14 17:38] LABS: ALANINE AMINOTRANSFERASE 25 U/L (12-78); ALBUMIN 4.2 g/dL (3.4-5.0); ALCOHOL, BLOOD < 3 mg/dL (0-0); ALKALINE PHOSPHATASE 101 U/L (46-116); ASPARTATE AMINOTRANSFERASE 19 U/L (15-37); BILIRUBIN,DIRECT 0.2 mg/dL (0.0-0.2); BILIRUBIN,TOTAL 0.7 mg/dL (0.2-1.0); TOTAL PROTEIN, SERUM 7.7 g/dL (6.4-8.2)
--- NOTE | 2021-07-14 17:41 | NUR ---
urine collected and sent to lab.
[2021-07-14 17:48] LABS: BILIRUBIN,URINE Negative (NEGATIVE); COLOR,URINE YELLOW (YELLOW); LEUKOCYTE ESTERASE ,URINE Negative (NEGATIVE); NITRITE, URINE Negative (NEGATIVE); PH,URINE 5.5 (5.0-8.0); PROTEIN,URINE Negative (NEGATIVE); UGLUCOSE Negative (NEGATIVE); UROBILINOGEN,URINE 0.2 EU/dL (0.2)
[2021-07-14 17:55] LABS: BACTERIA,URINE Few /HPF (None Seen); SQUAMOUS EPITHELIAL CELL,UR Few /HPF (None Seen); URINE AMORPHOUS URATE Moderate /HPF (None Seen); WBC,URINE 0-2 /HPF (0-3)
[2021-07-14] MEDS ORDERED: PIPERACILLIN /TAZOBACTAM 3.375 G in IV D5W 50 ML IV ONE (18:00)
[2021-07-14] MEDS ORDERED: IV NS 0.9% 1,000 ML BAG IV ONE (18:30)
--- NOTE | 2021-07-14 18:43 | NUR ---
PT IS WHEELED TO CT SCAN VIA [facility].
--- NOTE | 2021-07-14 18:53 | NUR ---
PT IS BACK FROM THE CT SCAN.
[2021-07-14 18:57] LABS: BAND % (MANUAL) 6 % (0.0-5.0); LYMPHOCYTES % (MANUAL) 6 % (16-48); MONOCYTES % (MANUAL) 8 % (0-11.0); NEUTROPHILS % (MANUAL) 80 (42-76)
--- NOTE | 2021-07-14 18:59 | NUR ---
covid swab collected and sent to lab.
--- NOTE | 2021-07-14 19:42 | NUR ---
TOOK OVER CARE. PT REMAINS ON NATIONAL COVERAGE SPECIALIST AND PULSE OX. WILL MONITOR PT CLOSELY.
[2021-07-14] MEDS ORDERED: VANCOMYCIN 1 GM in IV D5W 250 ML IV ONE (20:30)
[2021-07-14] MEDS ORDERED: VANCOMYCIN 1 GM VIAL ONE (20:31)
[2021-07-14] MEDS ORDERED: ACETAMINOPHEN 325 MG TABLET PO PRN (21:00)
[2021-07-14] MEDS ORDERED: Z GUARD REMEDY 2 OZ OINT TP PRN (21:00)
[2021-07-14] MEDS ORDERED: LORAZEPAM INJ 2 MG/ML VIAL IV PRN (21:00)
[2021-07-14] MEDS ORDERED: MAGNESIUM HYDROXIDE 30 ML UDC PO PRN (21:00)
[2021-07-14] MEDS ORDERED: MAG HYDROX/AL HYDROX/SIMETH 30 ML UDC PO PRN (21:00)
[2021-07-14] MEDS ORDERED: ONDANSETRON HCL/PF 4 MG/2 ML VIAL IVP PRN (21:00)
--- NOTE | 2021-07-14 21:16 | NUR ---
PT SLEEPING COMOFRTABLY IN BED RESPIRATIONS EVEN AND UNLABORED EASILY AROUSABLE. VITAL SIGNS WITHIN NORMAL LIMITS WILL CONTINUE TO MONITOR
[2021-07-14] MEDS ORDERED: LEVETIRACETAM (500MG) 500 MG in IV NS 0.9% 100 ML IV ONE (22:00)
[2021-07-14] MEDS ORDERED: LEVETIRACETAM (500MG) 500 MG/5 ML VIAL IV ONE (22:03)
--- NOTE | 2021-07-14 23:01 | NUR ---
REPORT GIVEN TO AFIA PETERS FOR ALESSIO. PT TRANSFERED PER ACLS PROTOCOL
--- NOTE | 2021-07-14 23:45 | NUR ---
PT REFUSING TELE MONITORING, SKIN ASSESSMENT,AND FULL BED BATH. EDUCATED PT X2 RISK AND BENEFITS, PT STILL REFUSED. MADE AWARE.
[2021-07-15] VITALS: BP 111/71
[2021-07-15 04:00] VITALS: BP 121/72
--- NOTE | 2021-07-15 07:15 | NUR ---
RN CLOSING NOTES/EMERGENCY CONTACT PT REFUSES CHANGE OF LINEN, TURNS AGGRESSIVE AND AGITATED DOES NOT WANT STAFF TO GET CLOSE. MD AWARE OF PT UNCOOPERATIVE HABITS. PT STILL OF TELE MONITOR. INFORMED PT OF NEURO CONSULTS AND WHAT TO EXPECT DURING HOSPITAL STAY AND SAFETY PROTOCOL, PT IS DISMISSIVE AND HAS CONSIDERED LEAVING. AT THIS TIME, PT IS STILL IN BED VERBALIZES HE WILL MAKE HIS MIND UP LATER. EMERGENCY CONTACT, ZURI VANCE HAS INFORMED US THAT PT BEHAVIOR IS ABNORMAL AND WAS PICKED UP FROM HIS HOUSE VIA AMBULANCE. UPDATE WAS GIVEN. Addendum: 07/15/21 at 0749 by TESFAYE MOORE RN NO EVIDENCE OF SEIZURE ACTIVITY NOTED
--- NOTE | 2021-07-15 07:26 | NUR ---
CENTRAL OFFICE ASSOCIATE NOTES PT IN BED, ASLEEP, EASY TO AROUSE, NO COMPLAINT AT THIS TIME, BREATHING PATTERN NORMAL, SEIZURE PRECAUTIONS OBSERVED.
[2021-07-15 08:00] VITALS: BP 107/75
[2021-07-15] MEDS: LEVETIRACETAM (250 MG) 250 MG TABLET PO SCH ×2 (08:13→16:34)
[2021-07-15] MEDS: PANTOPRAZOLE 40 MG TABLET.DR PO SCH (08:13)
--- NOTE | 2021-07-15 11:55 | NUR ---
RN MS NOTES PT IN BED, RESTING, NO COMPLAINT OF PAIN OR ANY DISCOMFORT, ABLE TO AMBULATE TO THE BATHROOM, PT MORE AWAKE AND ALERT NOW, SAFETY PRECAUTIONS OBSERVED, PT SEEN BY SPEECH THERAPIST, SWALLOW EVAL DONE, PT ABLE TO SWALLOW WITHOUT DIFFICULTY, WILL CONTINUE TO MONITOR.
[2021-07-15 12:00] VITALS: BP 112/77
--- NOTE | 2021-07-15 13:15 | NUR ---
SS Consult requested for Homelessness. SW will follow up at a later time.
--- NOTE | 2021-07-15 14:28 | NUR ---
RN MS NOTES PT IN BED, RESTING, NO COMPLAINT AT THIS TIME, PT REFUSED IV FLUIDS, REFUSED LAB WORKS, SEEN BY DR. WOLFE, INFORMED OF PT'S REFUSALS, EXPLAINED THE NEED FOR LAB WORKS.
--- NOTE | 2021-07-15 14:45 | NUR ---
KETTLEMAN NOTES ATTEMPTED BLOOD DRAW AGAIN, PT STILL REFUSED DESPITE EXPLANATIONS, DR. WOLFE INFORMED.
[2021-07-15 16:00] VITALS: BP 112/73
--- NOTE | 2021-07-15 16:56 | NUR ---
RN MS NOTES PT IN BED, AWAKE, NO COMPLAINT OF PAIN OR ANY DISCOMFORT, PT REFUSED EEG, PATIENT EDUCATION PROVIDED ABOUT THE PLAN OF CARE BUT STILL REFUSED, DR. HUIZAR INFORMED AND MET WITH PATIENT AT BEDSIDE, PT COMPLIANT WITH TAKING HIS PO KEPPRA ORDERED.
--- NOTE | 2021-07-15 18:07 | NUR ---
RN MS NOTES PT IN BED, RESTING, NO COMPLAINT AT THIS TIME, COMPLIANT WITH PO MEDS, CALL LIGHT WITHIN REACH, ENCOURAGED INCREASED PO INTAKE, WITH EPISODES OF BEING FORGETFUL, REALITY ORIENTATION PROVIDED NEEDED, MOM LENI INFORMED OF PT'S STATUS.
[2021-07-15 20:00] VITALS: BP 109/84
--- NOTE | 2021-07-15 20:05 | NUR ---
RN NOTE PATIENT IN BED RESTING, ALERT AND ORIENTED X1-2 EPISODES OF FORGETFULLNESS. ON ROOM AIR, RESPIRATIONS EVEN AND UNLABORED. IV ACCESS ON RIGHT AC # 18 PATENT AND INTACT. BED LOCKED AND IN LOWEST POSITION. SAFETY MEASURES IMPLEMENTED. CALL LIGHT WITHIN REACH.
[2021-07-16 04:00] VITALS: BP 124/89
--- NOTE | 2021-07-16 05:44 | NUR ---
NOTIFIED DR. TRIPLETT PATIENTS BLOOD CULTURE GRAM POSITIVE COCCI IN CLUSTERS WITH NO NEW ORDERS AT THIS TIME. JASPER CHARGE NURSE AWARE.
[2021-07-16 06:43] LABS: BASOPHILS # (AUTO) 0.1 K/uL (0.0-0.2); BASOPHILS % (AUTO) 0.8 % (0.0-2.0); EOSINOPHILS % (AUTO) 1.6 % (0.0-6.0); HEMATOCRIT 38 % (39-51); HEMOGLOBIN 13.1 g/dL (13.5-17.5); LYMPHOCYTES # (AUTO) 1.8 K/uL (0.8-4.8); LYMPHOCYTES % (AUTO) 22.5 % (20.0-44.0); MEAN CORPUSCULAR HGB CONC 35 g/dl (31.0-36.0); MEAN CORPUSCULAR VOLUME 102 fL (80-96); MONOCYTES # (AUTO) 1.1 K/uL (0.1-1.30); MONOCYTES % (AUTO) 13.2 % (2.0-12.0); NEUTROPHILS # (AUTO) 5.1 K/uL (1.8-8.9); NEUTROPHILS % (AUTO) 61.9 % (43.0-81.0); PLATELET COUNT (AUTO) 164 K/uL (150-450); RED BLOOD CELL COUNT(AUTO) 3.74 MIL/uL (4.5-6.0); WHITE BLOOD COUNT (AUTO) 8.2 K/uL (4.3-11.0)
[2021-07-16 06:57] LABS: CALCIUM, SERUM 8.6 mg/dL (8.5-10.1); CREATININE 0.7 mg/dL (0.6-1.3); MAGNESIUM 1.8 mg/dL (1.8-2.4); PHOSPHORUS 3.4 mg/dL (2.5-4.9); POTASSIUM 3.3 mmol/L (3.5-5.1)
--- NOTE | 2021-07-16 07:07 | NUR ---
RN NOTE PATIENT IN BED RESTING, ALERT AND ORIENTED X2-3. ON ROOM AIR, RESPIRATIONS EVEN AND UNLABORED. IV ACCESS ON RIGHT AC # 18 PATENT AND INTACT. REFUSED CHANGE OF LINENS. BED LOCKED AND IN LOWEST POSITION. SAFETY MEASURES IMPLEMENTED. CALL LIGHT WITHIN REACH. WILL ENDORSE TO AM SHIFT.
[2021-07-16] MEDS: PANTOPRAZOLE 40 MG TABLET.DR PO SCH (07:30)
--- NOTE | 2021-07-16 07:30 | NUR ---
RN NOTES PATIENT SUPINE IN BED, A&OX4 DISPLAYING NO S/S OF DISTRESS, BREATHING IS EVEN AND UNLABORED ON RA, PT ENDORSES NO PAIN. IV ACCESS ON RIGHT AC # 18 PATENT AND INTACT. BED LOCKED AND IN LOWEST POSITION. SAFETY MEASURES IMPLEMENTED. CALL LIGHT WITHIN REACH. SEIZURE PRECAUTIONS IN PLACE.
[2021-07-16] MEDS: LEVETIRACETAM (250 MG) 250 MG TABLET PO SCH ×2 (09:00→17:17)
[2021-07-16] MEDS ORDERED: POTASSIUM CHLORIDE 20 MEQ TAB.PRT.SR PO SCH (10:00)
[2021-07-16] MEDS ORDERED: CEFTRIAXONE 1 G in IV D5W 50 ML IV SCH (13:00)
--- NOTE | 2021-07-16 14:18 | NUR ---
"SS Consult: SS Consult requested for Homelessness. The pt. is a 41-year old male who is in TELE w/ c/o Seizures. The pt. appears disheveled, sun burned, is A&O X4 and makes piercing eye contact. The pt. is irritable, however, compliant with interview. Pt.s speech is WNL. Pt. denies SI/HI and denies hallucinations. SW explored pt.s living situation. Pt. states she has been technically homeless for some time and staying with a friend. SW explored pt.s mental health Hx. Pt. denies mental health illness or any medication. SW explored pt.s drug & ETOH use. Patient states he uses THC daily and denies alcohol use. Pt. states he is ambulatory. SW explored pt.s support system. Pt. states his support system includes: Sung SandyMir [phone] and Mother, Kendra Dale [phone]. D/C PLAN: Pt. states he will be returning to his friends home when ready for D/C Pt. refused to provide friends information or address. SW offered mcc placement and pt. refused. Pt. signed homeless waiver. SW provided the following homeless resources and pt. accepted them: Year-round shelters: [place] [address] [place] [address] ; [facility] [place] [address] [place] [address]; [place] [facility] [address] [facility] [address] Winter Shelters: Guille Fink Provider: [facility] Address: [address] [facility], [address] # of Beds: 47 Population Served: [facility] 6 | [facility] Roya Rosenbaum [place] Provider: [facility] Address: [address], [address] # of Beds: 66 Population Served: [facility] [place] Provider: [facility] Address: [address] [facility], [address] # of Beds: 56 Population Served: [facility] Irineo [place] Provider: / [facility] Address: [address] [facility], [address] # of Beds: 49 Population Served: [facility] 8 | [place] Lidia Fink Provider: [facility] Address: [address] [place], [address] # of Beds: 37 Population Served: [facility] Hy[facility]: [facility]: [address] [place] ; [facility] [address] [facility] ; [facility] [address], [place] . Food Resources: [place] [facility]- [address] [facility]; Meet Each Need with Dignity ([facility]) [address] [facility]; [facility] Food [facility] [address] [facility]; [facility] [address] [facility]. Mental Health resources provided: [facility] [address] [place], [place] [id number] ; [facility] [place] [address] [facility] [address], [place], [place] [phone] ; [facility] [address] [place], [place] [phone] ; [facility] [place], [place] [phone] Healthcare Clinics: [facility] [address] [facility], [address] [place]. [place] ; [facility] [address] [facility] [address] [place] [address]; [facility] [address] [facility]. [place] [phone] Counseling--Outpatient [facility] [address] [facility], [place] [address] (Specializes in in-depth psychotherapy for emotional distress: anxiety, depression, interpersonal conflicts, life transitions, childhood abuse) [facility] [address] [place], [place] [address] (Assist with solving problem marital difficulties, separation & divorce, aging parents, & grief, chronic & terminal illness) [facility] [address] [place] [address] (Deal with loss & grief, anxiety, marital difficulties) Homebound/Mental Health Services [address] [facility] [address] [place], [place] [address] (Provide in-home mental services to people who are incapable of leaving their homes) [facility] Elder[facility] [address] [place] [address] [facility] [address] [place], [place] [address] PSYCHIATRIC OUTPATIENT SERVICES [facility] Partial Hospitalization and Intensive Outpatient Program (Managed Care and Olds Only)[address] [facility] [phone] [facility] Partial Hospitalization and Outpatient [id number] [place], [place] [phone] [facility] [place] Bdc[address] [facility] [address] [place], [place] [phone] [facility] Partial Hospitalization and Outpatient Dxobeyw06524 [place], [phone] Substance Abuse resources provided included: [facility] Substance Abuse Self-Helpline (SAS) ; [facility] [address] [facility] [place]. [place] [address] ; [facility] [address] [facility] [address] ; [facility] [address] [facility] [address] ; [address] [place] [phone] ; [facility] [address] [facility] [address] ; [facility] [address] [facility] [phone] ; [facility] Substance Abuse Helpline(SAS)-[facility] ; [facility] ; [facility]; [facility]; [facility] [place]; [facility] Carlo Perdomo; [facility] [place]; [facility] [place]; [facility] [place]; [facility], [facility]. Melani Fink; Alcoholics Anonymous -[facility]; Sm-Qyuw-Atvrvcm ; Marijuana Anonymous -[facility]V; Narcotics Anonymous www.na.org;"
--- NOTE | 2021-07-16 19:25 | NUR ---
RN OPENING NOTE RECD PT IN BED, AWAKE EATING WELL WITH NO DIFFICULTY. PT IS A/O X3. PT IS ON ROOM AIR, NO SOB OR RESP DISTRESS NOTED. PT ON M/S MONITORING. IV INTACT. PT DENIES PAIN. SAFETY PRECAUTIONS IN PLACE. HOB ELEVATED. SIDE RAILS UPX2 LOCKED IN LOWEST POSITION WITH BED ALARM ON. CALL LIGHT WITHIN REACH. ALL NEEDS ATTENDED AT THIS TIME. WILL CONT TO MONITOR.
--- NOTE | 2021-07-16 19:27 | NUR ---
RN NOTE PT ENDORSED IN STABLE CONDITION FOR ALESSIO TO IUSS MASTER ANALYST RN. SBAR GIVEN, ALL QUESTIONS ANSWERED.
[2021-07-16 20:00] VITALS: BP 137/86
[2021-07-16] MEDS: IV D5/0.45 NACL 1,000 ML IV PRN (20:44)
[2021-07-16] MEDS ORDERED: VANCOMYCIN 1 GM in IV D5W 250ml IV ONE (21:30)
[2021-07-16] MEDS ORDERED: VANCOMYCIN 1 GM VIAL ONE (21:43)
[2021-07-17 04:00] VITALS: BP 120/83
[2021-07-17 06:56] LABS: BASOPHILS # (AUTO) 0.1 K/uL (0.0-0.2); BASOPHILS % (AUTO) 0.8 % (0.0-2.0); EOSINOPHILS % (AUTO) 1.8 % (0.0-6.0); HEMATOCRIT 42 % (39-51); HEMOGLOBIN 14.5 g/dL (13.5-17.5); LYMPHOCYTES # (AUTO) 1.5 K/uL (0.8-4.8); LYMPHOCYTES % (AUTO) 16.1 % (20.0-44.0); MEAN CORPUSCULAR HGB CONC 35 g/dl (31.0-36.0); MEAN CORPUSCULAR VOLUME 102 fL (80-96); MONOCYTES # (AUTO) 1.1 K/uL (0.1-1.30); MONOCYTES % (AUTO) 11.9 % (2.0-12.0); NEUTROPHILS # (AUTO) 6.5 K/uL (1.8-8.9); NEUTROPHILS % (AUTO) 69.4 % (43.0-81.0); PLATELET COUNT (AUTO) 190 K/uL (150-450); RED BLOOD CELL COUNT(AUTO) 4.13 MIL/uL (4.5-6.0); WHITE BLOOD COUNT (AUTO) 9.3 K/uL (4.3-11.0)
--- NOTE | 2021-07-17 06:59 | NUR ---
RN CLOSING NOTE PT REMAINS IN BED, RESTING WELL. NO SOB OR ACUTE DISTRESS NOTED. ALL NEEDS ATTENDED. BED BATH LINENS CHANGED. PT APPEARS COMFORTABLE, DENIES PAIN. SAFETY MEASURES IN PLACE. HOB ELEVATED. SIDE RAILS UPX2 BED LOCKED IN LOWEST POSITION WITH BED ALARM ON. CALL LIGHT WITHIN REACH WILL ENDORSE TO DAY SHIFT RN FOR CONTINUATION OF CARE.
[2021-07-17 07:30] LABS: CALCIUM, SERUM 8.7 mg/dL (8.5-10.1); CREATININE 0.7 mg/dL (0.6-1.3); MAGNESIUM 1.8 mg/dL (1.8-2.4); PHOSPHORUS 4.3 mg/dL (2.5-4.9); POTASSIUM 3.5 mmol/L (3.5-5.1)
--- NOTE | 2021-07-17 07:30 | NUR ---
MS RN AM NOTE RECD PT IN BED, PT IS A/O X3. ON ROOM AIR, NO SOB OR RESP DISTRESS NOTED. DENIES PAIN OR DISCOMFORT AT THIS TIME. RT AC INFILTRATED. REMOVED. PRESSURE APPLIED, CATH TIP COMPLETE, NO BLEEDING, DRESSING IN PLACE. RE STARTED IV ACCESS TO LEFT FA , D51/2 NS AT 75 ML INFUSING. SOFT DIET. AMBULATES WITH ASSIST. SAFETY PRECAUTIONS IN PLACE. HOB ELEVATED. SIDE RAILS UPX2 LOCKED IN LOWEST POSITION WITH BED ALARM ON. SEIZURE PRECAUTION IN PLACE. CALL LIGHT WITHIN REACH. ALL NEEDS ANTICIPATED. WILL CONT TO MONITOR.
[2021-07-17 08:00] VITALS: BP 108/76
[2021-07-17] MEDS: PANTOPRAZOLE 40 MG TABLET.DR PO SCH (08:26)
[2021-07-17] MEDS: VANCOMYCIN 1 GM in IV D5W 250 ML IV SCH ×2 (08:27→15:05)
[2021-07-17] MEDS: LEVETIRACETAM (250 MG) 250 MG TABLET PO SCH ×2 (08:29→17:05)
--- NOTE | 2021-07-17 09:30 | NUR ---
RN NOTES DUE MEDS GIVEN
[2021-07-17] MEDS: IV D5/0.45 NACL 1,000 ML IV PRN (15:04)
--- NOTE | 2021-07-17 18:25 | NUR ---
MS RN CLOSING NOTE PT IN BED, RESTING, PT IS A/O X3. ON ROOM AIR, NO SOB OR RESP DISTRESS NOTED. DENIES PAIN OR DISCOMFORT AT THIS TIME. IV ACCESS TO LEFT FA , D51/2 NS AT 75 ML INFUSING WELL. SITE CLEAR. SOFT DIET. AMBULATES WITH ASSIST. SAFETY PRECAUTIONS IN PLACE. HOB ELEVATED. SIDE RAILS UPX2 LOCKED IN LOWEST POSITION WITH BED ALARM ON. SEIZURE PRECAUTION IN PLACE. CALL LIGHT WITHIN REACH. ALL NEEDS MET. NO OTHER SIGNIFICANT CHANGE IN CONDITION.WILL ENDORSE TO NEXT SHIFT FOR ALESSIO.
[2021-07-17 20:00] VITALS: BP 135/83
--- NOTE | 2021-07-17 20:00 | NUR ---
MS RN NOTE PATIENT IN BED RESTING, ALERT AND ORIENTED X2-3. ON ROOM AIR,NO SOB NO DISTRESS NOTED RESPIRATIONS EVEN AND UNLABORED. IV ACCESS ON RIGHT AC # 18 PATENT AND INTACT.WITH D5 1/2 NS AT 75CC/HR INFUSING WELL ALL NEEDS ATTENDED TOO CALL LIGHT WITHIN REACH, KEPT PTS CLEAN DRY AND COMFORTABLE DUE MEDS GIVEN ORDERED. BED LOCKED AND IN LOWEST POSITION. SAFETY MEASURES IMPLEMENTED.WILL CONTINUE TO MONITOR PTS.
[2021-07-18 04:00] VITALS: BP 129/79
[2021-07-18] MEDS: IV D5/0.45 NACL 1,000 ML IV PRN (05:26)
--- NOTE | 2021-07-18 06:55 | NUR ---
MS RN NOTES PTS REMAINS ON R/A SATING 97-% NO SOB NO DISTRESS NOTED , NO SEIZURE ACTIVITY NOTED V/S STABLE AFEBRILE WILL ENDORSE TO RN DAY SHIFT FOR CONTINUITY OF CARE.
[2021-07-18 06:57] LABS: BASOPHILS # (AUTO) 0.1 K/uL (0.0-0.2); BASOPHILS % (AUTO) 0.8 % (0.0-2.0); EOSINOPHILS % (AUTO) 2.3 % (0.0-6.0); HEMATOCRIT 44 % (39-51); HEMOGLOBIN 14.6 g/dL (13.5-17.5); LYMPHOCYTES # (AUTO) 1.9 K/uL (0.8-4.8); LYMPHOCYTES % (AUTO) 19.1 % (20.0-44.0); MEAN CORPUSCULAR HGB CONC 33 g/dl (31.0-36.0); MEAN CORPUSCULAR VOLUME 104 fL (80-96); MONOCYTES # (AUTO) 1.3 K/uL (0.1-1.30); MONOCYTES % (AUTO) 13.4 % (2.0-12.0); NEUTROPHILS # (AUTO) 6.5 K/uL (1.8-8.9); NEUTROPHILS % (AUTO) 64.4 % (43.0-81.0); PLATELET COUNT (AUTO) 181 K/uL (150-450); RED BLOOD CELL COUNT(AUTO) 4.22 MIL/uL (4.5-6.0)
[2021-07-18 07:12] LABS: CALCIUM, SERUM 8.4 mg/dL (8.5-10.1); CREATININE 0.6 mg/dL (0.6-1.3); PHOSPHORUS 4.6 mg/dL (2.5-4.9); POTASSIUM 3.9 mmol/L (3.5-5.1)
--- NOTE | 2021-07-18 07:30 | NUR ---
MS RN AM NOTE RECD PT IN BED, PT IS A/O X3. ON ROOM AIR, NO SOB OR RESP DISTRESS NOTED. DENIES PAIN OR DISCOMFORT AT THIS TIME. IV ACCESS TO LEFT FA , D51/2 NS AT 75 ML INFUSING. SOFT DIET. AMBULATES WITH ASSIST. SAFETY PRECAUTIONS IN PLACE. HOB ELEVATED. SIDE RAILS UPX2 LOCKED IN LOWEST POSITION WITH BED ALARM ON. SEIZURE PRECAUTION IN PLACE. CALL LIGHT WITHIN REACH. ALL NEEDS ANTICIPATED. WILL CONT TO MONITOR.
[2021-07-18] MEDS: PANTOPRAZOLE 40 MG TABLET.DR PO SCH (07:52)
[2021-07-18 08:00] VITALS: BP 130/77
[2021-07-18] MEDS: LEVETIRACETAM (250 MG) 250 MG TABLET PO SCH ×2 (08:02→16:12)
--- NOTE | 2021-07-18 09:30 | NUR ---
RN NOTES DUE MEDS GIVEN
[2021-07-18] MEDS ORDERED: LEVE500T9 PO (12:46)
[2021-07-18 17:00] VITALS: BP 121/80
--- NOTE | 2021-07-18 18:59 | NUR ---
RN CLOSING NOTES PT DISCHARGED HOME. PT SIGNED EXIT CARE. L AC IV REMOVED. PT PICKED UP BY MANDEEP KEATING Addendum: 07/18/21 at 1917 by LEANNE SANTIAGO RN pt discharged to home per md in stable condition. provided dc instructions, health teachings and med recon/prescription. belongings checked. patient to follow up with pcp in 1-2 weeks and will make own schedule. all paperworks signed. picked up by Sung trevino via private car.
== END 2021-07-18 19:17 | disposition home or self-care (01) | DRG 53 ==
LOC: ER 17:04 → TELE1 21:30 → MEDSG1 07-15 16:22
PROVIDERS: ATTEND Student in an Organized Health Care Education/Training Program
DX: R56.9 Unspecified convulsions (principal); E87.2 Acidosis; D72.829 Elevated white blood cell count, unspecified; F12.90 Cannabis use, unspecified, uncomplicated; Z20.822 Contact with and (suspected) exposure to COVID-19; F17.210 Nicotine dependence, cigarettes, uncomplicated; Z91.19 Patient's noncompliance with other medical treatment and regimen
CPT/HCPCS: 36415; 70450-TC; 71045-TC; 80048-TC; 80076-TC; 81001; 83605-TC; 83735-TC; 84100-TC; 84484-TC; 85025-TC; 85730-TC; 87040-TC; 87081-TC; 87086-TC; 92526; 92611-TC; C9803; G0378; G0480; J0696; J1953; J2060; J2543; J3370; J3490; J7030; J7060; U0003

== ENCOUNTER 2021-09-28 00:12 | Emergency (ER) | payer OTHER ==
[~2021-09-28] VITALS: Ht 167.6 cm; Wt 52.2 kg
[~2021-09-28 00:12] MED LIST changes: -LEVE500T20 PO; +LEVE500T9 PO
[2021-09-28] MEDS ORDERED: ACETAMINOPHEN 325 MG TABLET PO ONE (01:30)
[2021-09-28 01:32] VITALS: BP 134/80
[2021-09-28] MEDS ORDERED: ACETAMINOPHEN 325 MG TABLET ONE (01:35)
[2021-09-28] MEDS ORDERED: HYDR-3972 PO (03:32)
[2021-09-28] MEDS ORDERED: HYDROCODONE/APAP 5/325MG TABLET ONE (03:38)
[2021-09-28] MEDS ORDERED: HYDROCODONE/APAP 5/325MG TABLET PO ONE (04:00)
== END 2021-09-28 04:09 | disposition home or self-care (01) ==
LOC: ER 00:14
DX: S52.572A Other intraarticular fracture of lower end of left radius, initial encounter for closed fracture (principal); Z79.899 Other long term (current) drug therapy; W01.0XXA Fall on same level from slipping, tripping and stumbling without subsequent striking against object, initial encounter; Y93.89 Activity, other specified; Y92.89 Other specified places as the place of occurrence of the external cause; Y99.8 Other external cause status
CPT/HCPCS: 73110